=== PATIENT | female | born 1965 | race Caucasian/White ===

== ENCOUNTER → 2017-07-31 | Outpatient (CLI) | payer BC ==
[~2017-07-31] MED LIST: AMLODIPINE BES2.5 MG PO; BUPROPION XL300 MG PO; CALCIUM-MAGNES1 EA10 PO; CATAPRES0.1 MG PO; CIPRO500 MG PO; COCONUT OIL1000 MG PO; CRANBERRY500 MG PO; CYMBALTA60 MG PO; ENDOCET 5-3251 EACH PO; FLOVENT 44120 INHALA IH; HYDROCODON-ACE1 EAC9 PO; L-LYSINE1000 M1 PO; MULTIPLE VITAM1 EAC4 PO; PERCOCET 7.51 TABLET PO; PRENATAL TABLE1 EAC3 PO; PROAIR HFA8.5 GM IH; SUPER B-50 COM1 EACH PO; VALIUM5 MG PO; VITAMIN C1000 MG PO; VITAMIN D35000 UNIT PO; ZANAFLEX4 M1 PO
== END | disposition home or self-care (01) ==
LOC: CDC 10:00
DX: Z01.810 Encounter for preprocedural cardiovascular examination (principal)
CPT/HCPCS: 93000

== ENCOUNTER 2017-08-01 11:39 | Day surgery (SDC) | payer BC ==
[~2017-08-01] VITALS: Ht 175.3 cm; Wt 90.3 kg
[2017-08-01 12:37] VITALS: BP 135/79
[2017-08-01 15:45] VITALS: BP 145/79
[2017-08-01 16:40] VITALS: BP 133/66
== END 2017-08-01 16:45 | disposition home or self-care (01) ==
LOC: SDC
DX: N84.0 Polyp of corpus uteri (principal); N93.9 Abnormal uterine and vaginal bleeding, unspecified; I10 Essential (primary) hypertension; D50.0 Iron deficiency anemia secondary to blood loss (chronic); J45.909 Unspecified asthma, uncomplicated; F41.8 Other specified anxiety disorders; Z86.73 Personal history of transient ischemic attack (TIA), and cerebral infarction without residual deficits
CPT/HCPCS: 88305; J1100; J1170; J1885; J2250; J2405; J3010; Q0175